=== PATIENT | female | born 1990 | race Caucasian/White ===

== ENCOUNTER 2016-10-14 11:55 | Emergency (ER) | payer MEDICARE, OTHER ==
[2016-10-14 13:03] LABS: URINE BILIRUBIN NEGATIVE (NEGATIVE); URINE BLOOD TRACE (NEGATIVE); URINE GLUCOSE (UA) NORMAL (NORMAL); URINE KETONE TRACE (NEGATIVE); URINE LEUKOCYTE ESTERASE 2+ (NEGATIVE); URINE NITRATE NEGATIVE (NEGATIVE); URINE PROTEIN 1+ (NEGATIVE)
[2016-10-14 13:19] LABS: URINE BACTERIA 1+ (NONE SEEN); URINE SQUAMOUS EPITHELIAL CELL 0-10 /[HPF] (NONE SEEN); URINE WBC >15 /[HPF] (0-5)
[2016-10-14 13:20] LABS: URINE AMORPHOUS SEDIMENT 1+; URINE MUCUS TRACE
== END 2016-10-14 13:40 | disposition home or self-care (01) ==
LOC: ER 11:55
PROVIDERS: Internal Medicine
DX: N39.0 Urinary tract infection, site not specified (principal); F79 Unspecified intellectual disabilities; Z79.899 Other long term (current) drug therapy
CPT/HCPCS: 81001; 81025; 99283

== ENCOUNTER 2016-10-19 23:56 | Emergency (ER) | payer MEDICARE, OTHER ==
[2016-10-20 00:31] LABS: BASO % 0.1 % (0.1-1.2); EOS % 0.3 % (0.7-5.8); GRAN # 3.8 10_X3_uL (1.6-6.1); GRAN % 55.8 % (34.0-71.1); HEMOGLOBIN 13.8 g/dL (11.2-15.7); LYMPH # 2.1 10_X3_uL (1.2-3.7); LYMPH % 30.6 % (19.3-51.7); MEAN CORPUSCULAR HEMOGLOBIN 31.1 pg (27.0-33.0); MEAN CORPUSCULAR HGB CONC 34.5 g/dL (32.0-36.0); MEAN CORPUSCULAR VOLUME 90.1 fL (79-95); MEAN PLATELET VOLUME 9.8 fl (7.5-11.5); MONO # 0.9 10_X3_uL (0.2-0.9); MONO % 13.2 % (4.7-12.5); PLATELET COUNT 87 x10_3/uL (182-369); RED BLOOD COUNT 4.44 x10_6/uL (3.9-5.2); RED CELL DISTRIBUTION WIDTH 12.6 % (11.7-14.4); WHITE BLOOD COUNT 6.8 x10_3/uL (4.0-10.0)
== END 2016-10-20 03:00 | disposition home or self-care (01) ==
LOC: ER 23:56
PROVIDERS: Internal Medicine
DX: L03.115 Cellulitis of right lower limb (principal); S80.11XA Contusion of right lower leg, initial encounter; X58.XXXA Exposure to other specified factors, initial encounter; F84.0 Autistic disorder; E03.9 Hypothyroidism, unspecified
CPT/HCPCS: 36415; 73600; 85025; 96365; 99070; 99283; 99283-25

== ENCOUNTER 2016-10-20 15:13 | Emergency (ER) | payer MEDICARE, OTHER | END 2016-10-20 15:50 | disposition home or self-care (01) | LOC: ER 15:13 | DX: L03.211 Cellulitis of face (principal); F84.0 Autistic disorder; F31.9 Bipolar disorder, unspecified; Z79.899 Other long term (current) drug therapy | CPT/HCPCS: 99282; 99283 ==

== ENCOUNTER 2016-10-26 12:43 | Emergency (ER) | payer MEDICARE, OTHER | END 2016-10-26 13:34 | disposition home or self-care (01) | LOC: ER 12:43 | DX: Z48.817 Encounter for surgical aftercare following surgery on the skin and subcutaneous tissue (principal) | CPT/HCPCS: 99070; 99282 ==

== ENCOUNTER 2016-11-17 15:02 | Emergency (ER) | payer MEDICARE, OTHER | END 2016-11-17 16:30 | disposition home or self-care (01) | LOC: ER 15:02 | DX: S71.102A Unspecified open wound, left thigh, initial encounter (principal); S91.001A Unspecified open wound, right ankle, initial encounter; X58.XXXA Exposure to other specified factors, initial encounter; F84.0 Autistic disorder; F90.9 Attention-deficit hyperactivity disorder, unspecified type; Z79.899 Other long term (current) drug therapy | CPT/HCPCS: 99070; 99282; 99283 ==

== ENCOUNTER 2016-11-20 20:11 | Emergency (ER) | payer MEDICARE, OTHER ==
[2016-11-20 22:43] LABS: BASO % 0.1 % (0.1-1.2); EOS % 0.2 % (0.7-5.8); GRAN # 4.4 10_X3_uL (1.6-6.1); GRAN % 49.8 % (34.0-71.1); HEMATOCRIT 37.9 % (34-45); HEMOGLOBIN 12.9 g/dL (11.2-15.7); LYMPH # 3.5 10_X3_uL (1.2-3.7); LYMPH % 39.6 % (19.3-51.7); MEAN CORPUSCULAR HEMOGLOBIN 31.5 pg (27.0-33.0); MEAN CORPUSCULAR VOLUME 92.7 fL (79-95); MEAN PLATELET VOLUME 9.6 fl (7.5-11.5); MONO # 0.9 10_X3_uL (0.2-0.9); MONO % 10.3 % (4.7-12.5); PLATELET COUNT 146 x10_3/uL (182-369); RED BLOOD COUNT 4.09 x10_6/uL (3.9-5.2); RED CELL DISTRIBUTION WIDTH 12.7 % (11.7-14.4); WHITE BLOOD COUNT 8.9 x10_3/uL (4.0-10.0)
[2016-11-20 23:02] LABS: ALBUMIN 3.7 gm/dL (3.4-5.0); ALKALINE PHOSPHATASE 86 U/L (50-136); ALT/SGPT 8 U/L (3.5-33.9); AST/SGOT 11 U/L (7.04-26.96); BILIRUBIN,TOTAL 0.25 mg/dL (0.0-1.0); BLOOD UREA NITROGEN 13 mg/dL (7-18); CALCIUM 8.7 mg/dL (8.7-10.7); CARBON DIOXIDE 21 mmol/L (21-32); CREATININE 0.5 mg/dL (0.6-1.3); GLUCOSE,RANDOM 69 mg/dL (70-99); POTASSIUM 3.3 mmol/L (3.5-5.1); SODIUM 138 mmol/L (136-145); TOTAL PROTEIN 6.6 gm/dL (6.4-8.2)
== END 2016-11-21 00:18 | disposition home or self-care (01) ==
LOC: ER 20:11
PROVIDERS: Emergency Medicine
DX: E87.6 Hypokalemia (principal); F84.0 Autistic disorder; Z86.19 Personal history of other infectious and parasitic diseases; Z79.899 Other long term (current) drug therapy
CPT/HCPCS: 36415; 80053; 85025; 99282; 99283

== ENCOUNTER 2016-12-07 16:13 | Emergency (ER) | payer MEDICARE, OTHER ==
[2016-12-07 16:56] LABS: BASO % 0.1 % (0.1-1.2); EOS % 0.1 % (0.7-5.8); GRAN # 4.6 10_X3_uL (1.6-6.1); GRAN % 61.4 % (34.0-71.1); HEMATOCRIT 36.9 % (34-45); HEMOGLOBIN 12.7 g/dL (11.2-15.7); LYMPH # 1.9 10_X3_uL (1.2-3.7); LYMPH % 24.7 % (19.3-51.7); MEAN CORPUSCULAR HEMOGLOBIN 31.6 pg (27.0-33.0); MEAN CORPUSCULAR HGB CONC 34.4 g/dL (32.0-36.0); MEAN CORPUSCULAR VOLUME 91.8 fL (79-95); MEAN PLATELET VOLUME 9.4 fl (7.5-11.5); MONO % 13.7 % (4.7-12.5); PLATELET COUNT 113 x10_3/uL (182-369); RED BLOOD COUNT 4.02 x10_6/uL (3.9-5.2); RED CELL DISTRIBUTION WIDTH 12.7 % (11.7-14.4); WHITE BLOOD COUNT 7.5 x10_3/uL (4.0-10.0)
[2016-12-07 17:12] LABS: ALBUMIN 3.1 gm/dL (3.4-5.0); ALKALINE PHOSPHATASE 155 U/L (50-136); ALT/SGPT 9 U/L (3.5-33.9); AST/SGOT 14 U/L (7.04-26.96); BILIRUBIN,TOTAL 0.25 mg/dL (0.0-1.0); BLOOD UREA NITROGEN 10 mg/dL (7-18); CALCIUM 8.3 mg/dL (8.7-10.7); CARBON DIOXIDE 18 mmol/L (21-32); CREATININE 0.5 mg/dL (0.6-1.3); GLUCOSE,RANDOM 117 mg/dL (70-99); POTASSIUM 3.7 mmol/L (3.5-5.1); SODIUM 138 mmol/L (136-145); TOTAL PROTEIN 5.9 gm/dL (6.4-8.2)
== END 2016-12-07 19:12 | disposition home or self-care (01) ==
LOC: ER 16:13
PROVIDERS: Internal Medicine
DX: E86.0 Dehydration (principal); Z98.890 Other specified postprocedural states; F84.0 Autistic disorder
CPT/HCPCS: 36415; 71010; 80053; 85025; 96360; 96361; 99070; 99284; 99284-25